=== PATIENT | male | born 1940 | race Native Hawaiian/Other Pacific Islander ===

== ENCOUNTER 2017-05-26 07:27 | Day surgery (SDC) | payer MEDICARE, MEDICAID ==
[2017-05-14 08:41] VITALS: BMI 23.0
[2017-05-26] MEDS ORDERED: Bupivacaine-Epi 0.25%-1:200,000 PF Inj ONE (08:22)
[2017-05-26] MEDS ORDERED: ceFAZolin IV 2 gm in Dextrose 1 GM/50 ML BAG IVPB ONE (08:22)
[2017-05-26] MEDS ORDERED: Lidocaine 1% Inj (20ml) ONE (08:23)
[2017-05-26] MEDS ORDERED: Midazolam 2 MG/2 ML VIAL ONE (08:46)
[2017-05-26] MEDS ORDERED: Propofol 10 mg/ml Inj (20 ML) ONE (08:46)
[2017-05-26] MEDS ORDERED: Lactated Ringer's 1,000 ML IV ONE ×3 (08:55→12:30)
[2017-05-26] MEDS ORDERED: Neostigmine Methylsulfate 3mg/3ml Syringe IV ONE (09:47)
[2017-05-26] MEDS ORDERED: HYDROmorphone 0.5 mg/0.5 ml ISec IVP PRN (10:35)
[2017-05-26] MEDS ORDERED: Oxycodone/Acetaminophen 5/325 mg Tab PO PRN (11:08)
--- NOTE | 2017-05-26 11:08 | PCM.SURG1 ---
Surgeon's Initial Post Op Note - Surgeon's Notes Surgeon: Dr. Jamil Security Flex Officer: Dr. Escalona PGY3 Type of Anesthesia: General Endo, Local Pre-Operative Diagnosis: left inguinal hernia Operative Findings: see op report Post-Operative Diagnosis: same Operation Performed: open left inguinal hernia repair w/ mesh Specimen/Specimens Removed: hernia sac Estimated Blood Loss: EBL {In ML}: 10 Blood Products Given: N/A Drains Used: No Drains Post-Op Condition: Good Date of Surgery/Procedure: 05/26/17 Time of Surgery/Procedure: 11:08
[2017-05-26 11:42] VITALS: O2SAT 100
[2017-05-26 14:01] VITALS: BP 120/80; PULSE 63; RESP 18; TEMP 97.1
--- NOTE | 2017-05-27 04:34 | OP ---
PROCEDURE DATE: 05/26/2017 PREOPERATIVE DIAGNOSIS: Left inguinal hernia. POSTOPERATIVE DIAGNOSIS: Left direct and indirect inguinal hernia. PROCEDURE: Open left inguinal hernia repair with mesh. SURGEON: Dr. Jamil. PLANNING CONSULTANT: Laurie Escalona, PGY-3 resident and ELIZABETH Chapman. TYPE OF ANESTHESIA: General endotracheal tube anesthesia. ESTIMATED BLOOD LOSS: Around 10 mL. DRAIN: None. PATHOLOGY: Hernial sac and content were sent to the pathology. COMPLICATIONS: None. INTRAOPERATIVE FINDINGS: The patient had a very small indirect sac and large direct defect and on intraoperative step, this 77-year-old male, who was diagnosed with left inguinal hernia, and the patient consented for open left inguinal hernia repair with a mesh. DESCRIPTION OF PROCEDURE: Brought to the OR, placed supine on the operating table after induction of anesthesia. The abdomen was prepped and draped in the usual sterile fashion. The left lower quadrant 5 cm incisions were made after incising the skin and subcutaneous tissue. The external oblique aponeurosis was divided and upper and lower flap dissection was done. The spermatic cord structure was identified and hernial sac was identified at the internal ring and that was reduced back into the peritoneal cavity after removing the part of it. Now there was a large defect in the direct hernial site and now the plug was placed and plug was sutured to the surrounding tissue and the patch was also placed and patch was also sutured to the tubercle inguinal ligament and conjoint tendon and internal ring was recreated and the *------* sutured back with 0 Vicryl to create the roof of the inguinal canal and external ring was recreated and after that the subcu was sutured with 3-0 Vicryl, skin with a 4-0 Monocryl and a sterile dressing was applied. The patient tolerated the procedure well, count of the instrument was correct. There was no apparent complication. The patient was extubated in OR, sent to the recovery room in stable condition. Luis Daniel Jamil MD
== END 2017-05-26 14:03 | disposition home or self-care (01) ==
LOC: C.SDS 07:27
PROVIDERS: ATTEND Surgery Surgical Critical Care
DX: K40.90 Unilateral inguinal hernia, without obstruction or gangrene, not specified as recurrent (principal)
CPT/HCPCS: 49505; 88302; C1781; J0690; J1100; J1170; J2001; J2250; J2405; J2704; J2710; J3010; J7120

== ENCOUNTER 2017-09-01 07:27 | Day surgery (SDC) | payer MEDICARE, MEDICAID ==
[2017-05-14 08:38] VITALS: BMI 23.0
[2017-09-01] MEDS ORDERED: Ciprofloxacin 400mg/200ml D5W 0 MG/0 ML BAG IVPB ONE (08:49)
[2017-09-01] MEDS ORDERED: Lidocaine 2% Jelly (Uro-Jet) ONE (08:49)
[2017-09-01] MEDS ORDERED: Gentamicin 80 mg in 0.9% NS 0 MG/0 ML BAG IVPB ONE (08:49)
[2017-09-01] MEDS ORDERED: Propofol 10 mg/ml Inj (20 ML) ONE (09:00)
[2017-09-01] MEDS ORDERED: Midazolam 2 MG/2 ML VIAL ONE (09:00)
[2017-09-01] MEDS ORDERED: Lidocaine Hydrochloride 5 ML INJ ONE (09:01)
[2017-09-01] MEDS ORDERED: Lactated Ringer's 1,000 ML IV ONE ×2 (09:05→10:30)
[2017-09-01] MEDS ORDERED: cefTRIAXone IV 1 gm in Dextros 50 ML IVPB ONE (09:08)
[2017-09-01] MEDS ORDERED: HYDROmorphone 0.5 mg/0.5 ml ISec IVP PRN (10:41)
[2017-09-01] MEDS ORDERED: Lactated Ringer's 1,000 ML IV SCH (10:45)
[2017-09-01 12:09] VITALS: RESP 18
[2017-09-01 12:30] VITALS: BP 127/74; PULSE 88; TEMP 97.7; O2SAT 100
--- NOTE | 2017-09-02 00:53 | OP ---
PROCEDURE DATE: 09/01/2017 PREOPERATIVE DIAGNOSIS: Obstructive benign prostatic hypertrophy. POSTOPERATIVE DIAGNOSIS: Obstructive benign prostatic hypertrophy. PROCEDURE PERFORMED: GreenLight laser of the prostate. DESCRIPTION OF PROCEDURE: The patient was placed on the operating table in the dorsal lithotomy position. He was given general anesthesia. The area of the groin was draped and prepped in a sterile manner. Using a laser scope, I entered into the bladder atraumatically and under direct vision. At this time, I identified the adenoma, the mid lobe was quite large and seemed to be the predominant obstructing portion of his prostate. I used the laser fiber at this point to demarcate the distal margin of resection, which was lateral to the verumontanum and then, I began to laser the adenoma. Ultimately, we used about 275,000 joules of energy at a maximum of 160 flores power. At the end of that procedure, there was a wide opening from the veru into the bladder. Ureteral orifices were identified midway during the procedure once the middle lobe was taken down and again, the opening was significant. At this time, then the instrumentation was removed, I estimated the blood loss to be less then 20 mL. A #22 3-way Robles catheter was inserted. The patient then had CBI begun prior to him leaving the operating room, and he was taken from the operating room in good condition. Marysol Mcdermott MD
== END 2017-09-01 12:30 | disposition home or self-care (01) ==
LOC: C.SDS 07:27
PROVIDERS: ATTEND Urology
DX: N40.0 Benign prostatic hyperplasia without lower urinary tract symptoms (principal)
CPT/HCPCS: 52648; J0696; J7120